=== PATIENT | female | born 1950 | race American Indian/Alaskan Native ===

== ENCOUNTER → 2025-04-04 | Outpatient (CLI) | payer BC ==
--- NOTE | 2025-04-05 07:05 | BD ---
EXAMINATION TYPE: Axial Bone Density DATE OF EXAM: 04/04/2025 CLINICAL HISTORY: 75 years old Female. ICD-10 CODE: M85.89 DISRD BONE DENSITY , Additional History: Height: 5 ft 1/2 in Weight: 130 FRAX RISK QUESTIONS: Alcohol (3 or more units per day): no Family History (Parent hip fracture): no Glucocorticoids (More than 3mos): no (Ex: prednisone, prednisolone, methylprednisolone, dexamethasone, and hydrocortisone). History of Fracture in Adulthood: no Secondary Osteoporosis: 1. Type 1 Diabetes: type 2 2. Hyperthyroidism: no 3. Menopause before 45: no 4. Malnutrition: no 5. Chronic liver disease: no Rheumatoid Arthritis: no Current Tobacco Use: no RISK FACTORS HISTORY OF: Surgery to Spine/Hip(right/left)/Wrist (right/left): no MEDICATIONS: Thyroid Medications: none Osteoporosis Medications: none EXAM MEASUREMENTS: Bone mineral densitometry was performed using the [employer] System. Bone mineral density as measured about the Lumbar spine is: ----- L1-L4(G/cm2): 0.975 T Score Values are as follows: ----- L1: -1.8 ----- L2: -1.8 ----- L3: -1.3 ----- L4: -2.0 ----- L1-L4: -1.7 Z Score Values are as follows: ----- L1: 0.1 ----- L2: 0.2 ----- L3: 0.6 ----- L4: 0.0 ----- L1-L4: 0.3 prev done elsewhere Bone mineral density about the R hip (g/cm2): 0.724 Bone mineral density about the L hip (g/cm2): 0.767 T Score values are as follows: -----R Neck: -2.3 -----L Neck: -1.9 -----R Total: -1.5 -----L Total: -1.3 Z Score values are as follows: -----R Neck: -0.2 -----L Neck: 0.1 -----R Total: 0.4 -----L Total: 0.6 prev done elsewhere FRAX%s: The graph provided illustrates a 15.8 % chance for a major osteoporotic fx and a 4.7 % chance for the hips probability for fx in 10 years time. IMPRESSION: Osteopenia (T Score between -2.5 and -1). There is slightly increased risk of fracture and the patient may be considered for treatment. Re-Screen 2-5 years. NOTE: T-SCORE=SD OF THE YOUNG ADULT MEAN. [facility], , 04/05/2025 7:03 AM
--- NOTE | 2025-04-05 07:55 | MM ---
Reason for Exam: Screening (asymptomatic). Last mammogram was performed 1 year(s) and 5 month(s) ago. Patient History: Menarche at age 12. First Full-Term at age 20. Postmenopausal. Patient has history of breast feeding. Risk Values: Hallie 5 year model risk: 0.4%. NCI Lifetime model risk: 0.8%. Prior Study Comparison: 04/30/2021 Bilateral Screening Mammogram, [facility] [place]. 11/19/2021 Left Diagnostic Mammogram, [facility] [place]. 10/10/2022 Bilateral Screening Mammogram, [facility] [place]. 11/25/2023 Bilateral Screening Mammogram, [facility] [place]. Tissue Density: There are scattered areas of fibroglandular density. Findings: Analyzed By CAD. Small benign-appearing round and dystrophic calcifications scattered throughout the right breast are redemonstrated. There is no suspicious group of microcalcifications or new suspicious mass in either breast. Overall Assessment: Benign, BI-RAD 2 Management: Screening Mammogram of both breasts in 1 year. . Patient should continue monthly self-breast exams. A clinical breast exam by your physician is recommended on an annual basis. This exam should not preclude additional follow-up of suspicious palpable abnormalities. Note on Hallie scores and lifetime risk: 1. A Hallie score greater than 3% is considered moderate risk. If this is the case, consider specialist referral to assess eligibility for a risk reducing agent. 2. If overall lifetime risk for the development of breast cancer is 20% or higher, the patient may qualify for future screening with alternating mammogram and breast MRI. [facility], , 04/05/2025 7:52 AM. Electronically signed and approved by: Beto Melendez M.D.
== END | disposition home or self-care (01) ==
LOC: RADBDWWP 15:06
PROVIDERS: ATTEND Internal Medicine
DX: Z12.31 Encounter for screening mammogram for malignant neoplasm of breast (principal); M85.89 Other specified disorders of bone density and structure, multiple sites; R92.323 Mammographic fibroglandular density, bilateral breasts; R92.1 Mammographic calcification found on diagnostic imaging of breast; Z78.0 Asymptomatic menopausal state
CPT/HCPCS: 77063; 77067; 77080